=== PATIENT | male | born 1960 ===

== ENCOUNTER 2017-06-04 05:14 | Inpatient (IN) | payer OTHER ==
[2017-06-04] VITALS (11 sets, daily range): BP systolic 94–118; BP diastolic 64–82
[~2017-06-04] VITALS: Ht 172.7 cm; Wt 70.3 kg
[~2017-06-04 05:14] MED LIST: NORCO 5-325 TA1 EACH ORAL; NORVASC5 MG ORAL; OMEPRAZOLE20 M2 ORAL
[2017-06-04] MEDS ORDERED: METOPROLOL SUCC25 MG ORAL (06:26)
[2017-06-04] MEDS ORDERED: NIFEDIPINE PO (06:26)
[2017-06-04] MEDS ORDERED: ISOSORBIDE DINI10 M1 PO (06:26)
[2017-06-04] MEDS ORDERED: ASPIRIN EC81 MG ORAL (06:26)
[2017-06-04] MEDS ORDERED: ATORVASTATIN CA40 MG ORAL (06:26)
[2017-06-04] MEDS ORDERED: SPIRONOLACTONE1 EACH ORAL (06:26)
[2017-06-04] MEDS ORDERED: LISINOPRIL5 MG ORAL (06:26)
[2017-06-04] MEDS ORDERED: Bupivacaine 0.5% Inj 30 ml vial INJ ONE (06:40)
[2017-06-04] MEDS ORDERED: Thrombin 5000 units TOPIC ONE ×2 (06:40→08:18)
[2017-06-04] MEDS ORDERED: Vancomycin 1gm inj IVPB ONE ×2 (06:41→06:51)
[2017-06-04] MEDS ORDERED: Bacitracin 50000 Units Vial ONE (06:41)
[2017-06-04] MEDS ORDERED: Ropivacaine 5mg/ml Vial 30ml INJ ONE (06:41)
[2017-06-04] MEDS ORDERED: LR 1000ml 1,000 ML IVLG SCH (06:42)
[2017-06-04] MEDS ORDERED: HYDROcodone/Acetamin 7.5/325 tab ORAL PRN (06:45)
[2017-06-04] MEDS ORDERED: fentaNYL 100 mcg/2 mL IV PRN (06:45)
[2017-06-04] MEDS ORDERED: Atropine Inj 1mg/10ml Syr IV PRN (06:45)
[2017-06-04] MEDS ORDERED: Hydromorphone 0.5mg/0.5ml inj IVP PRN (06:45)
[2017-06-04] MEDS ORDERED: Midazolam 2mg/2ml Inj IVP PRN (06:45)
[2017-06-04] MEDS ORDERED: LORazepam Inj 2mg/ml 1ml IV PRN (06:45)
[2017-06-04] MEDS ORDERED: Acetaminophen (Non formulary) 100 ML IV ONE (06:45)
[2017-06-04] MEDS ORDERED: oxyCODONE HCL/Acetaminophen 5/325mg ORAL PRN (06:45)
[2017-06-04] MEDS ORDERED: Ketorolac 30mg Inj IV PRN ×2 (06:45)
[2017-06-04] MEDS ORDERED: Norco 5mg/325mg tab ORAL PRN (06:45)
[2017-06-04] MEDS ORDERED: Labetalol 5mg/ml 20ml vial IV PRN (06:45)
[2017-06-04] MEDS ORDERED: DiphenhydrAMINE 50mg/ml Inj IVP PRN (06:45)
--- NOTE | 2017-06-04 06:47 | Anethesia Preoperative Eval ---
Anesthesia Pre-op PMH/ROS General Date of Evaluation: Jun 04, 2017 Time of Evaluation: 07:01 Anesthesiologist: Shirin ASA Score: ASA 3 Mallampati Score Class I : Soft palate, uvula, fauces, pillars visible Class II: Soft palate, uvula, fauces visible Class III: Soft palate, base of uvula visible Class IV: Only hard plate visible Mallampati Classification: Class II Surgeon: Dinah Diagnosis: Back Pain Surgical Procedure: Remove Hardware L5-S1, Explore Fusion Anesthesia History: none Family History: no anesthesia problems Allergies: Coded Allergies: NO KNOWN ALLERGIES (Verified Allergy, Unknown, 07/08/14) Medications: see eMAR Past Medical History Cardiovascular: Reports: HTN, CAD - CABG 2017, other - HL Neurologic/Psychiatric: Reports: depression/anxiety PSxH Narrative: Back SX 2014, CABG 2017 Anesthesia Pre-op Phys. Exam Physician Exam Last Vital Signs Date Time Temp Pulse Resp B/P (MAP) Pulse Ox O2 Delivery O2 Flow Rate FiO2 06/04/17 06:08 97.0 64 20 97 Room Air 97.0 Constitutional: NAD Neurologic: CN 2-12 intact Cardiovascular: RRR Respiratory: CTA Gastrointestinal: S/NT/ND Airway Exam Mallampati Classification ASA 3 Mallampati Score: Class II MO: limited ROM: limited Teeth: missing, intact Anesthesia Pre-op A/P Risk Assessment & Plan Assessment: ASA 3 Plan: GA, BIS, GlideScope Go Pre-Antibiotics Dru Grams Ancef IV Given Within 1 Hr of Incision: Yes Time Given: 07:16 Cleve Carpio MD Jun 04, 2017 06:47
--- NOTE | 2017-06-04 06:48 | Immediate Post-Op Evaluation ---
Immediate Post-Op Evalulation Immediate Post-Op Evalulation Procedure: Remove Hardware L5-S1, Explore Fusion Date of Evaluation: Jun 04, 2017 Time of Evaluation: 09:18 IV Fluids: 1000 LR Blood Products: 0 Estimated Blood Loss: 25 Urinary Output: 0 Blood Pressure Systolic: 117 Blood Pressure Diastolic: 80 Pulse Rate: 82 Respiratory Rate: 16 O2 Sat by Pulse Oximetry: 98 Temperature (Fahrenheit): 97.3 Pain Score (1-10): 2 Nausea: No Vomiting: No Complications 0 Patient Status: awake, reacts, patent, extubated, none Hydration Status: adequate Dru Grams Ancef IV Given Within 1 Hr of Incision: Yes Time Given: 07:16 Cleve Carpio MD Jun 04, 2017 06:48
[2017-06-04] MEDS ORDERED: Lidocaine 1% Plain 30 ml INJ ONE (06:50)
[2017-06-04] MEDS ORDERED: Surgicel 4in x 8in TOPIC ONE (06:51)
[2017-06-04] MEDS ORDERED: Lidocaine 1% 10mg/ml/Epi 0.005mg/ml 30ml vial INJ ONE (06:51)
--- NOTE | 2017-06-04 06:58 | Pre-Procedure Note/Attestation ---
Pre-Procedure Note/Attestation Complete Prior to Procedure Planned Procedure: not applicable Procedure Narrative: lumbar pedicle screw instrumentation removal Indications for Procedure Pre-Operative Diagnosis: Pain Attestation I attest that I discussed the nature of the procedure; its benefits; risks and complications; and alternatives (and the risks and benefits of such alternatives ), prior to the procedure, with the patient (or the patient's legal litigation claim representative). I attest that, if there was a reasonable possibility of needing a blood transfusion, the patient (or the patient's legal litigation claim representative) was given the [facility] standardized written summary, pursuant to the Demetris Peter Blood Safety Act ([place] Health and Safety Code # 1645, as amended). I attest that I re-evaluated the patient just prior to the surgery and that there has been no change in the patient's H&P, except as documented below: RUSLAN MORGAN Jun 04, 2017 06:58
[2017-06-04] MEDS ORDERED: Dexamethasone 20mg/5ml IVP ONE (07:00)
[2017-06-04] MEDS ORDERED: ceFAZolin sod 1 GM in D5W 55 ML IVPB ONE (07:00)
[2017-06-04] MEDS ORDERED: Midazolam 2mg/2ml Inj ONE (07:00)
[2017-06-04] MEDS ORDERED: NS Irrig 1000ml ONE (07:00)
[2017-06-04] MEDS ORDERED: fentaNYL 100 mcg/2 mL IV ONE (07:00)
[2017-06-04] MEDS ORDERED: Glycopyrrolate 0.2mg/ml 1ml Vial ONE (07:00)
[2017-06-04] MEDS ORDERED: Sterile Water Irrig 1000ml IRRIG ONE (07:00)
[2017-06-04] MEDS ORDERED: Propofol 1,000mg/ 100ml btl IV ONE (07:00)
[2017-06-04] MEDS ORDERED: Lidocaine 1% MPF 10mg/ml 5ml ONE (07:00)
[2017-06-04] MEDS ORDERED: LR 1000ml ONE (07:00)
[2017-06-04] MEDS ORDERED: Neostigmine 1mg/ml 10ml Inj ONE (07:00)
--- NOTE | 2017-06-04 08:27 | Brief Operative Note ---
Immediate Post Operative Note Operative Note Pre-op Diagnosis: Pain Procedure: exploration lumbar fusion scar xray L5, S1 pedicle scrwe removal local Post-op Diagnosis: same as pre-op Findings: consistent w/pre-op dx studies Surgeon: Dinah CHAUHAN Whistle Punk: Sadia SILVA Anesthesiologist: Shirin CHAUHAN Anesthesia: general Specimen: yes Complications: none Condition: stable Fluids: anesthesia Estimated Blood Loss: minimal Drains: none Implant(s) used?: No RUSLAN MORGAN Jun 04, 2017 08:27
[2017-06-04] MEDS ORDERED: Naloxone 0.4mg/ml Inj IVP PRN (10:30)
[2017-06-04] MEDS ORDERED: D5 1/2NS 1,000 ML IV SCH (10:30)
[2017-06-04] MEDS ORDERED: NORCO 10-325 T1 EACH ORAL (11:28)
--- NOTE | 2017-06-04 12:12 | Diagnostic Imaging Report ---
Indication: Back pain Comparison: None Findings: Fluoroscopic views of the lumbar spine were obtained. 2 views obtained. Localization needle projected over the posterior part of the L4 vertebra. L5-S1 posterior fusion instrumentation noted. Total fluoroscopic time 2 seconds. IMPRESSION: Intraoperative imaging
[2017-06-04] MEDS ORDERED: HYDROcodone/Acetamin 10/325 tab ORAL PRN (13:15)
[2017-06-04] MEDS ORDERED: ceFAZolin sod 1 GM in D5W 110 ML IV SCH (15:00)
[2017-06-04] MEDS ORDERED: Chloraseptic Spray 20mL Bottle ORAL PRN (15:15)
--- NOTE | 2017-06-04 17:45 | Operative Note - Dictated ---
DATE OF OPERATION: 06/04/2017 SURGEON: Jass Nix, Ph.D., M.D. MANAGER MACHINE: RICARDO Quinones. ANESTHESIA: Dr. Carpio, general with intubation. ESTIMATED BLOOD LOSS: Minimal. COMPLICATIONS: None. DRAINS: None. SPECIMEN: Gross only. Pedicle screw instrumentation was removed. PREOPERATIVE DIAGNOSIS: Pedicle screw instrumentation irritation, paraspinal muscles. POSTOPERATIVE DIAGNOSIS: Pedicle screw instrumentation irritation, paraspinal muscles. OPERATIVE PROCEDURE: Exploration of fusion mass, L5-S1. Removal of pedicle screw instrumentation, bilateral L5, bilateral S1. Local anesthetic applied by surgeon. Intraoperative fluoroscopy interpreted by surgeon. Operation through scar tissue. DESCRIPTION OF PROCEDURE: The patient was brought to the operating room and in the supine position, general anesthesia with intubation was induced. IV antibiotics and IV Decadron were administered 30 minutes prior to incision time. The patient was carefully turned and positioned in the prone position. Lumbodorsal spine was sterilely prepped. Spinal needle was placed percutaneously into the subcutaneous tissue only. Under sterile conditions, cross-table fluoroscopic image was obtained, interpreted by surgeons for demonstration of incision level placement. Level was marked. Needle removed. Back was re-sterilely prepped and draped free in usual sterile fashion. A longitudinal incision utilizing part of the prior midline incision and scar was carried sharply through scar tissue. Electrocautery dissection was carried to the level of lumbodorsal fascia, incised through scar tissue right and left of midline to the pedicle screw instrumentation. Interconnecting rods were removed bilaterally. Stressing of the fusion mass revealed no motion. Intact fusion. Pedicle screws were removed in a piecemeal fashion. All instrumentation was intact. Irrigation was undertaken pedicle screw holes placed with dorsal FloSeal. Vancomycin powder placed deep to the fascia. Fascial reapproximation with Vicryl suture material. Subcutaneous tissue reapproximated in multiple layers. Local anesthetic 1% lidocaine without epinephrine applied to bilateral lateral aspects of the wound. Surgical strips followed with Dermabond placed. Bandage placed after Dermabond was dry. The patient was carefully turned from the prone to the supine position onto the transport bed. This bandage maintained in place with tape. The patient was awakened, extubated in the operating room, transported to postop recovery in good stable condition. Jass Nix M.D. DR: DENZEL JOB#: [id number] CC:
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
[2017-06-05 11:44] VITALS: BP 18/72
--- NOTE | 2017-06-05 11:44 | 48 Hour Post Anesthesia Eval ---
Post Anesthesia Evaluation Procedure: Remove Hardware L5-S1, Explore Fusion Date of Evaluation: Jun 05, 2017 Time of Evaluation: 11:43 Blood Pressure Systolic: 18 0: 72 Pulse Rate: 68 Respiratory Rate: 22 Temperature (Fahrenheit): 97.6 O2 Sat by Pulse Oximetry: 98 Airway: patent Nausea: No Vomiting: No Pain Intensity: 2 Hydration Status: adequate Cardiopulmonary Status: stable Mental Status/LOC: patient returned to baseline Follow-up Care/Observations: n/a Post-Anesthesia Complications: none Follow-up care needed: ready to discharge ANABEL LOBATO M.D. Jun 05, 2017 11:44
--- NOTE | 2017-06-05 15:21 | Discharge Summary ---
Discharge Summary Hospital Course Date of Admission Jun 04, 2017 at 05:14 Date of Discharge Jun 04, 2017 at 16:35 Admitting Diagnosis POLLO Pearce is a 57 year old male who was admitted on Jun 04, 2017 at 05:14 for Radiculopathy Hospital Course [id number] Discharge Discharge Disposition Patient was discharged to Home (01) Judith Zarco NP Jun 05, 2017 15:21
--- NOTE | 2017-06-05 21:15 | Discharge Summary 2 SIG ---
DATE OF ADMISSION: 06/04/2017 DATE OF DISCHARGE: 06/04/2017 DIESEL PILE HAMMER OPERATOR: Alessio Mackenzie M.D. BRIEF HOSPITAL COURSE: The patient is a 57-year-old male who was diagnosed with pedicle screw instrumentation irritation, was admitted on June 04, 2017 and underwent exploration of fusion mass on L5-S1 with removal of pedicle screw instrumentation on bilateral L5 and bilateral S1. He tolerated procedure well. Postoperatively, he was seen by Dr. Mackenzie for pain management. He was given [place] and Soma p.r.n. He was placed on Protonix for GI prophylaxis. He was given SCDs for DVT prophylaxis. He was encouraged use of incentive spirometer. Diet was advanced. He was seen by physical therapy. He had good pain control and was ambulating well and eating well. He was discharged home. FINAL DIAGNOSES: 1. Pedicle screw instrumentation irritation, paraspinal muscles. 2. Exploration of fusion mass L5-S1. 3. Removal of pedicle screw instrumentation, bilateral S1 and L5. Refer to operative report. DISPOSITION: The patient was discharged home. DISCHARGE INSTRUCTIONS: Followup with surgeon in a week. DISCHARGE MEDICATIONS: Refer to medication list. Jass Nix M.D. I have been assigned to dictate discharge summary on this account and I was not involved in the patient's management. Judith Zarco N.P. DR: Osman JOB#: [id number] CC:
== END 2017-06-04 16:35 | disposition home or self-care (01) | DRG 497 ==
LOC: SDSOVERFLO 05:14 → 3E 10:13
PROC: 0QP004Z Removal of Internal Fixation Device from Lumbar Vertebra, Open Approach (ICD-10-PCS; principal; 2017-06-04 07:00)
DX: T84.84XA Pain due to internal orthopedic prosthetic devices, implants and grafts, initial encounter (principal); Y83.8 Other surgical procedures as the cause of abnormal reaction of the patient, or of later complication, without mention of misadventure at the time of the procedure; Z98.1 Arthrodesis status; G89.18 Other acute postprocedural pain; I10 Essential (primary) hypertension; Z95.1 Presence of aortocoronary bypass graft; Z87.891 Personal history of nicotine dependence; V89.2XXS Person injured in unspecified motor-vehicle accident, traffic, sequela; I25.10 Atherosclerotic heart disease of native coronary artery without angina pectoris; K21.9 Gastro-esophageal reflux disease without esophagitis; E78.00 Pure hypercholesterolemia, unspecified; Z82.49 Family history of ischemic heart disease and other diseases of the circulatory system
CPT/HCPCS: 36415; 72020; 76000; 86850; 86900; 86901; 87081; 94760; J2250; J2710